=== PATIENT | female | born 1960 | race American Indian/Alaskan Native ===

== ENCOUNTER 2021-03-23 05:54 | Inpatient (IN) | payer BC ==
[2021-03-23] MEDS ORDERED: HALOPERIDOL LACTATE 5 MG/1 ML INJ IM PRN (06:28)
[2021-03-23] MEDS ORDERED: LORazepam 2 MG/ML VIAL IM SCH (06:30)
[2021-03-23] MEDS ORDERED: LORazepam 0.5 MG TAB PO PRN (06:31)
[2021-03-26] MEDS: traZODone 50 MG TAB PO SCH ×2 (08:01→21:08)
[2021-03-26] MEDS: FLUoxetine 10 MG TAB PO SCH (10:48)
[2021-03-26 10:56] LABS: Basophils % (Auto) 0.4 % (0.0-1.8); Eosinophils # (Auto) 0.1 K/mm3 (0.0-0.4); Eosinophils % (Auto) 1.6 % (0.0-4.3); Hematocrit 43.6 % (30.3-42.9); Hemoglobin 14.7 gm/dl (10.1-14.3); Lymphocytes # (Auto) 1.3 K/mm3 (1.2-5.4); Lymphocytes % (Auto) 16.5 % (13.4-35.0); Mean Corpuscular HGB Conc 34 % (30-34); Mean Corpuscular Volume 88 fl (79-97); Monocytes # (Auto) 0.6 K/mm3 (0.0-0.8); Monocytes % (Auto) 7.4 % (0.0-7.3); Platelet Count 344 K/mm3 (140-440); Red Blood Count 4.97 M/mm3 (3.65-5.03); Red Cell Distribution Width 13.8 % (13.2-15.2)
[2021-03-26 11:19] LABS: Alanine Aminotransferase 29 units/L (7-56); Albumin 4.1 g/dL (3.9-5); BUN/Creatinine Ratio 10; Blood Urea Nitrogen 10 mg/dL (7-17); Calcium 9.5 mg/dL (8.4-10.2); Chol/HDL Ratio 1.84 %; HDL Cholesterol 72 mg/dL (40-59); Hemolysis Index 2; LDL Cholesterol,Direct 50 mg/dL (50-130)
[2021-03-26] MEDS: GABAPENTIN 300 MG CAP PO SCH ×2 (13:39→21:09)
[2021-03-26] MEDS ORDERED: NON-FORMULARY EACH (Gabapentin [Neurontin] 600 MG Tablet) PO SCH (14:00)
[2021-03-27] MEDS: GABAPENTIN 300 MG CAP PO SCH ×3 (05:30→21:32)
[2021-03-27] MEDS: FLUoxetine 10 MG TAB PO SCH (09:31)
[2021-03-27] MEDS ORDERED: ONDANSETRON 4 MG ODT TAB PO PRN (17:57)
[2021-03-27] MEDS ORDERED: POLYMYXIN B SULF OD SCH (22:00)
[2021-03-27] MEDS ORDERED: TRIMETHOPRIM OD SCH (22:00)
[2021-03-28] MEDS: GABAPENTIN 300 MG CAP PO SCH ×3 (06:11→21:12)
[2021-03-28] MEDS: FLUoxetine 10 MG TAB PO SCH (10:27)
[2021-03-28] MEDS: hydroCHLOROthiazide 12.5 MG CAP PO SCH (10:27)
[2021-03-28] MEDS: PANTOPRAZOLE 40 MG TAB PO SCH (10:27)
[2021-03-28] MEDS: LISINOPRIL 10 MG TAB PO SCH (10:27)
[2021-03-28] MEDS: FUROSEMIDE 20 MG TAB PO SCH (10:27)
[2021-03-28] MEDS: amLODIPine 5 MG TAB PO SCH (10:35)
[2021-03-28] MEDS: MONTELUKAST 10 MG TAB PO SCH (17:29)
[2021-03-29] MEDS: traZODone 50 MG TAB PO SCH ×2 (02:42→21:35)
[2021-03-29] MEDS: GABAPENTIN 300 MG CAP PO SCH ×3 (08:01→21:35)
[2021-03-29] MEDS: hydroCHLOROthiazide 12.5 MG CAP PO SCH (10:37)
[2021-03-29] MEDS: LISINOPRIL 10 MG TAB PO SCH (10:37)
[2021-03-29] MEDS: PANTOPRAZOLE 40 MG TAB PO SCH (10:37)
[2021-03-29] MEDS: FUROSEMIDE 20 MG TAB PO SCH (10:37)
[2021-03-29] MEDS: FLUoxetine 20 MG CAP PO SCH (10:37)
[2021-03-29] MEDS: amLODIPine 5 MG TAB PO SCH (10:38)
[2021-03-29] MEDS: MONTELUKAST 10 MG TAB PO SCH ×2 (19:49→20:30)
[2021-03-29] MEDS: OFLOXACIN 0.3% OPHTH SOLN 5 ML OU SCH (23:40)
[2021-03-30] MEDS: OFLOXACIN 0.3% OPHTH SOLN 5 ML OU SCH ×3 (05:32→21:30)
[2021-03-30] MEDS: GABAPENTIN 300 MG CAP PO SCH ×3 (05:32→21:53)
[2021-03-30] MEDS: FUROSEMIDE 20 MG TAB PO SCH (10:02)
[2021-03-30] MEDS: LISINOPRIL 10 MG TAB PO SCH (10:02)
[2021-03-30] MEDS: PANTOPRAZOLE 40 MG TAB PO SCH (10:02)
[2021-03-30] MEDS: hydroCHLOROthiazide 12.5 MG CAP PO SCH (11:25)
[2021-03-30] MEDS: FLUoxetine 20 MG CAP PO SCH (11:31)
[2021-03-30] MEDS: amLODIPine 5 MG TAB PO SCH (11:31)
[2021-03-30] MEDS: MONTELUKAST 10 MG TAB PO SCH (21:29)
[2021-03-30] MEDS: traZODone 50 MG TAB PO SCH (21:30)
[2021-03-31] MEDS: OFLOXACIN 0.3% OPHTH SOLN 5 ML OU SCH ×4 (01:00→17:15)
[2021-03-31] MEDS: GABAPENTIN 300 MG CAP PO SCH ×3 (05:52→21:15)
[2021-03-31] MEDS: FUROSEMIDE 20 MG TAB PO SCH (10:18)
[2021-03-31] MEDS: FLUoxetine 20 MG CAP PO SCH (10:18)
[2021-03-31] MEDS: hydroCHLOROthiazide 12.5 MG CAP PO SCH (10:18)
[2021-03-31] MEDS: PANTOPRAZOLE 40 MG TAB PO SCH (10:18)
[2021-03-31] MEDS: LISINOPRIL 10 MG TAB PO SCH (10:18)
[2021-03-31] MEDS: amLODIPine 5 MG TAB PO SCH (10:18)
[2021-03-31] MEDS: MONTELUKAST 10 MG TAB PO SCH (17:16)
[2021-03-31] MEDS: traZODone 50 MG TAB PO SCH (21:15)
[2021-04-01] MEDS: OFLOXACIN 0.3% OPHTH SOLN 5 ML OU SCH ×4 (02:09→17:22)
[2021-04-01] MEDS: GABAPENTIN 300 MG CAP PO SCH ×3 (05:37→21:23)
[2021-04-01] MEDS: FLUoxetine 20 MG CAP PO SCH (09:21)
[2021-04-01] MEDS: PANTOPRAZOLE 40 MG TAB PO SCH (09:21)
[2021-04-01] MEDS: FUROSEMIDE 20 MG TAB PO SCH (09:21)
[2021-04-01] MEDS: amLODIPine 5 MG TAB PO SCH (09:22)
[2021-04-01] MEDS: LISINOPRIL 10 MG TAB PO SCH (09:22)
[2021-04-01] MEDS: hydroCHLOROthiazide 12.5 MG CAP PO SCH (09:22)
[2021-04-01] MEDS: MONTELUKAST 10 MG TAB PO SCH (17:22)
[2021-04-01] MEDS: traZODone 50 MG TAB PO SCH (21:23)
[2021-04-02] MEDS: OFLOXACIN 0.3% OPHTH SOLN 5 ML OU SCH ×3 (00:19→12:21)
[2021-04-02 09:10] VITALS: BP 109/72
[2021-04-02] MEDS: amLODIPine 5 MG TAB PO SCH (09:23)
[2021-04-02] MEDS: FLUoxetine 20 MG CAP PO SCH (09:23)
[2021-04-02] MEDS: FUROSEMIDE 20 MG TAB PO SCH (09:23)
[2021-04-02] MEDS: PANTOPRAZOLE 40 MG TAB PO SCH (09:23)
[2021-04-02] MEDS: hydroCHLOROthiazide 12.5 MG CAP PO SCH (09:23)
[2021-04-02] MEDS: LISINOPRIL 10 MG TAB PO SCH (09:24)
== END 2021-04-02 12:25 | disposition home or self-care (01) | DRG 885 ==
LOC: UNDOADMIN 05:54 → 3A 05:54 → 5A 03-26 03:30
PROVIDERS: ADMIT Psychiatry & Neurology Psychiatry; ATTEND Psychiatry & Neurology Psychiatry
DX: F32.3 Major depressive disorder, single episode, severe with psychotic features (principal); I10 Essential (primary) hypertension; K21.9 Gastro-esophageal reflux disease without esophagitis; G62.9 Polyneuropathy, unspecified; E87.6 Hypokalemia; E66.9 Obesity, unspecified; Z79.899 Other long term (current) drug therapy; Z88.8 Allergy status to other drugs, medicaments and biological substances; Z79.51 Long term (current) use of inhaled steroids; Z68.32 Body mass index [BMI] 32.0-32.9, adult
CPT/HCPCS: 36415; 80053; 80061; 82962; 83036; 84443; 85025; G0378